=== PATIENT | male | born 1960 | race African-American/Black ===

== ENCOUNTER 2020-02-13 17:11 | Inpatient (IN) | payer BC, OTHER ==
[2020-02-13 19:03] LABS: BASO % 0.6 % (0-2.0); EOS % 1.1 % (0-4.5); HEMATOCRIT 28.3 % (35.4-49); HEMOGLOBIN 8.9 GM/dL (11.7-16.9); MCHC 31.5 g/dl (32.0-35.9); MEAN CELL VOLUME 82.7 fl (80-96); MEAN PLT VOLUME 7.8 fl (7.5-11.1); MONO % 9.3 % (3.8-10.2); PLATELET COUNT 262 K/MM3 (134-434); RBC 3.42 M/mm3 (4.00-5.60); RDW 17.6 % (11.9-15.9); WHITE BLOOD COUNT 15.8 K/mm3 (4.0-10.0)
[2020-02-13] MEDS ORDERED: SODIUM CHLORIDE 1,000 ML IV STA (19:17)
[2020-02-13] MEDS ORDERED: SODIUM CHLORIDE 500 ML IV STA ×4 (19:19→23:50)
[2020-02-13 19:22] LABS: CHLORIDE 98 mmol/L (98-107); POTASSIUM 4.6 mmol/L (3.5-5.1); SODIUM 132 mmol/L (136-145)
[2020-02-13 19:24] LABS: ALBUMIN 2.6 g/dl (3.4-5.0); ANION GAP 13 MMOL/L (8-16); CALCIUM 9.2 mg/dL (8.5-10.1); CO2 22 mmol/L (21-32); GLUCOSE,RANDOM 109 mg/dL (74-106)
[2020-02-13 19:27] LABS: SGOT/AST 22 U/L (15-37); SGPT/ALT 65 U/L (13-61)
[2020-02-13 19:29] LABS: BILIRUBIN,TOTAL 1.4 mg/dL (0.2-1); TOT PROT 7.7 g/dl (6.4-8.2)
[2020-02-13 19:30] LABS: ALK PHOS 171 U/L (45-117)
[2020-02-13 19:32] LABS: N-TERMINAL BNP 1753.4 pg/ml (5-125)
[2020-02-13 19:58] LABS: CREATININE 12.5 mg/dL (0.55-1.3)
[2020-02-13] MEDS ORDERED: PIPERACILLIN/TAZOB 3.375 GM 2.25 GM in DEXTROSE 5%-WATER - 50 ML IVPB ONE (21:58)
[2020-02-13] MEDS ORDERED: PIPERACILLIN/TAZOB 2.25 GM 2.25 GM/50 ML BAG IVPB ONE (22:04)
[2020-02-13 22:19] LABS: INR 1.37 (0.83-1.09); PROTHROMBIN TIME (PATIENT) 16.4 SEC (9.7-13.0)
[2020-02-13 22:21] LABS: ACTIVATED PTT 32.1 SECONDS (25.2-36.5)
[2020-02-13] MEDS ORDERED: NOREPINEPHRINE BITARTRATE 4,000 MCG in SODIUM CHLORIDE 0.45% 496 ML IV SCH (23:45)
[2020-02-14] MEDS ORDERED: SODIUM CHLORIDE 1,000 ML IV STA (00:14)
[2020-02-14] MEDS ORDERED: VANCOMYCIN 1 GM in D5W (PRE-DOCKED) 1,000 MG/250 ML IVPB ONE (00:16)
[2020-02-14] MEDS ORDERED: VANCOMYCIN 1 GRAM (PRE-DOCKED) 1,000 MG/250 ML BAG IVPB ONE (01:23)
[2020-02-14] MEDS ORDERED: SODIUM CHLORIDE 0.9% 500 ML INFUS.BAG IV ONE (02:10)
[2020-02-14 02:58] VITALS: BMI 18.7
[2020-02-14] MEDS ORDERED: SODIUM CHLORIDE 1,000 ML IV SCH (06:30)
[2020-02-14 06:47] LABS: BASO % 0.9 % (0-2.0); EOS % 7.4 % (0-4.5); HEMATOCRIT 25.7 % (35.4-49); MCH 25.6 pg (25.7-33.7); MCHC 31.3 g/dl (32.0-35.9); MEAN CELL VOLUME 81.9 fl (80-96); MEAN PLT VOLUME 7.6 fl (7.5-11.1); MONO % 8.4 % (3.8-10.2); NEUT % 59.3 % (42.8-82.8); PLATELET COUNT 203 K/MM3 (134-434); RBC 3.13 M/mm3 (4.00-5.60); RDW 17.7 % (11.9-15.9); WHITE BLOOD COUNT 8.6 K/mm3 (4.0-10.0)
[2020-02-14 06:55] LABS: INR 1.4 (0.83-1.09); PROTHROMBIN TIME (PATIENT) 16.8 SEC (9.7-13.0)
[2020-02-14 07:41] LABS: POTASSIUM 4.1 mmol/L (3.5-5.1)
[2020-02-14 07:56] LABS: ALBUMIN 2.2 g/dl (3.4-5.0)
[2020-02-14 07:57] LABS: BLOOD UREA NITROGEN 93.8 mg/dL (7-18); MAGNESIUM 1.9 mg/dL (1.8-2.4)
[2020-02-14 07:58] LABS: CALCIUM 8.6 mg/dL (8.5-10.1)
[2020-02-14 07:59] LABS: PHOSPHOROUS 5.8 mg/dL (2.5-4.9)
[2020-02-14 08:00] LABS: BILIRUBIN,TOTAL 0.7 mg/dL (0.2-1); TOT PROT 6.4 g/dl (6.4-8.2)
[2020-02-14 08:02] LABS: N-TERMINAL BNP 2246.5 pg/ml (5-125)
[2020-02-14 08:16] LABS: CREATININE 11.8 mg/dL (0.55-1.3)
[2020-02-14 09:33] LABS: HIV INTERPRETATION NEGATIVE (NEGATIVE)
[2020-02-14] MEDS ORDERED: PIPERACILLIN/TAZOB 2.25 GM 2.25 GM in DEXTROSE 5%-WATER - 50 ML IVPB SCH (10:00)
[2020-02-14] MEDS ORDERED: ALBUTEROL SO4 HFA INHALER IH SCH (10:00)
[2020-02-14] MEDS ORDERED: APIXABAN 5 MG TABLET PEG SCH ×2 (10:00→11:45)
[2020-02-14] MEDS ORDERED: PIPERACILLIN/TAZOBACTAM 2.25 GM VIAL IVPB ONE ×3 (10:29→21:06)
[2020-02-14] MEDS ORDERED: DEXTROSE 5%-WATER - 50 ML IVPB ONE ×3 (10:29→21:06)
[2020-02-14] MEDS: MUPIROCIN 2% TOPICAL OINTMENT FOR DECOLONIZATION NS SCH ×2 (10:55→21:09)
[2020-02-14] MEDS: ASPIRIN 81 MG CHEWABLE TABLETS PO SCH (10:55)
[2020-02-14] MEDS: PANTOPRAZOLE SODIUM 40 MG VIAL IVPUSH SCH (10:56)
[2020-02-14] MEDS: PIPERACILLIN/TAZOB 2.25 GM 2.25 GM in DEXTROSE 5%-WATER - 50 ML IVPB SCH ×4 (10:56→17:47)
[2020-02-14] MEDS: NOREPINEPHRINE BITARTRATE 8,000 MCG/500 ML BAG IVPB SCH (12:09)
[2020-02-14] MEDS ORDERED: SODIUM CHLORIDE 250 ML IV PRN (13:29)
[2020-02-14] MEDS ORDERED: EPOETIN ALFA-EPBX 10,000 UNIT/ML VIAL SQ ONE (14:30)
[2020-02-14] MEDS: AMINO ACIDS/PROTEIN HYDROLYS 30 ML LIQUID.PKT GT SCH (17:47)
[2020-02-14] MEDS ORDERED: PNEUMOC 13-VAL CONJ-DIP CRM/PF 0.5 ML DISP.SYRIN IM ONE (20:00)
[2020-02-14] MEDS ORDERED: ACETAMINOPHEN 1000 MG/100 ML VIAL (NON FORMULARY) IVPB ONE (21:03)
[2020-02-14] MEDS ORDERED: PT OWN MED DRAWER 7, Y5N ONE (21:06)
[2020-02-14] MEDS: APIXABAN 2.5 MG TABLET PEG SCH (21:09)
[2020-02-14] MEDS: CHLORHEXIDINE GLUCONATE 4% CLEANSER FOR DECOLONIZATION TP SCH (21:10)
[2020-02-14] MEDS: ALBUTEROL SO4 0.083% IH SOL 2.5 MG/3 ML VIAL.NEB. NEB SCH (21:15)
[2020-02-15] MEDS: PIPERACILLIN/TAZOB 2.25 GM 2.25 GM in DEXTROSE 5%-WATER - 50 ML IVPB SCH ×3 (02:00→17:23)
[2020-02-15 07:42] LABS: HEMATOCRIT 25.8 % (35.4-49); MCH 25.5 pg (25.7-33.7); MCHC 31.1 g/dl (32.0-35.9); MEAN CELL VOLUME 81.9 fl (80-96); MEAN PLT VOLUME 7.7 fl (7.5-11.1); PLATELET COUNT 248 K/MM3 (134-434); RBC 3.15 M/mm3 (4.00-5.60); WHITE BLOOD COUNT 7.2 K/mm3 (4.0-10.0)
[2020-02-15 07:47] LABS: POTASSIUM 3.5 mmol/L (3.5-5.1)
[2020-02-15 07:52] LABS: ALBUMIN 1.9 g/dl (3.4-5.0); CALCIUM 7.9 mg/dL (8.5-10.1); MAGNESIUM 1.6 mg/dL (1.8-2.4)
[2020-02-15] MEDS ORDERED: DEXTROSE 5%-WATER - 50 ML IVPB ONE ×3 (07:52→21:11)
[2020-02-15] MEDS ORDERED: PIPERACILLIN/TAZOBACTAM 2.25 GM VIAL IVPB ONE ×3 (07:52→21:11)
[2020-02-15] MEDS ORDERED: MAGNESIUM SULF 50% (8.12 MEQ/2 ML-1 GM VIAL) IVPB ONE (07:54)
[2020-02-15] MEDS ORDERED: ACETAMINOPHEN 650 MG/20.3 ML ORAL SOLUTION (CUPS) PEG ONE (07:54)
[2020-02-15 07:55] LABS: CREATININE 5.9 mg/dL (0.55-1.3)
[2020-02-15 07:56] LABS: BILIRUBIN,TOTAL 0.8 mg/dL (0.2-1); TOT PROT 6.2 g/dl (6.4-8.2)
[2020-02-15 07:57] LABS: BLOOD UREA NITROGEN 37.8 mg/dL (7-18)
[2020-02-15] MEDS: ALBUTEROL SO4 0.083% IH SOL 2.5 MG/3 ML VIAL.NEB. NEB SCH ×2 (08:05→21:25)
[2020-02-15] MEDS: AMINO ACIDS/PROTEIN HYDROLYS 30 ML LIQUID.PKT GT SCH ×2 (08:49→17:22)
[2020-02-15] MEDS ORDERED: MAGNESIUM SULF 50% (8.12 MEQ/2 ML-1 GM VIAL) ONE (09:34)
[2020-02-15] MEDS ORDERED: morphine SULFATE 4 MG/ML VIAL IVPUSH PRN (10:24)
[2020-02-15] MEDS: APIXABAN 2.5 MG TABLET PEG SCH ×2 (10:47→21:15)
[2020-02-15] MEDS: ASPIRIN 81 MG CHEWABLE TABLETS PO SCH (10:47)
[2020-02-15] MEDS: PANTOPRAZOLE SODIUM 40 MG VIAL IVPUSH SCH (10:48)
[2020-02-15] MEDS: MUPIROCIN 2% TOPICAL OINTMENT FOR DECOLONIZATION NS SCH ×2 (10:48→21:15)
[2020-02-15] MEDS: NOREPINEPHRINE BITARTRATE 8,000 MCG/500 ML BAG IVPB SCH (11:00)
[2020-02-15] MEDS ORDERED: ACETAMINOPHEN 650 MG/20.3 ML ORAL SOLUTION (CUPS) PEG PRN (12:00)
[2020-02-15] MEDS ORDERED: ONDANSETRON 4 MG/2 ML VIAL IVPUSH PRN (15:23)
[2020-02-15] MEDS ORDERED: VANCOMYCIN 1 GRAM (PRE-DOCKED) 1,000 MG/250 ML BAG IVPB ONE (16:00)
[2020-02-15] MEDS ORDERED: PT OWN MED DRAWER 7, Y5N ONE (21:11)
[2020-02-15] MEDS: CHLORHEXIDINE GLUCONATE 4% CLEANSER FOR DECOLONIZATION TP SCH (21:15)
[2020-02-16] MEDS: PIPERACILLIN/TAZOB 2.25 GM 2.25 GM in DEXTROSE 5%-WATER - 50 ML IVPB SCH ×3 (02:28→17:45)
[2020-02-16 07:07] LABS: HEMATOCRIT 27.3 % (35.4-49); HEMOGLOBIN 8.3 GM/dL (11.7-16.9); MCH 25.1 pg (25.7-33.7); MCHC 30.5 g/dl (32.0-35.9); MEAN CELL VOLUME 82.3 fl (80-96); MEAN PLT VOLUME 7.3 fl (7.5-11.1); PLATELET COUNT 223 K/MM3 (134-434); RBC 3.31 M/mm3 (4.00-5.60); RDW 18.1 % (11.9-15.9); WHITE BLOOD COUNT 6.4 K/mm3 (4.0-10.0)
[2020-02-16 07:20] LABS: POTASSIUM 3.6 mmol/L (3.5-5.1)
[2020-02-16 07:26] LABS: ALBUMIN 1.9 g/dl (3.4-5.0); BLOOD UREA NITROGEN 44.4 mg/dL (7-18); CALCIUM 8.3 mg/dL (8.5-10.1); MAGNESIUM 1.8 mg/dL (1.8-2.4)
[2020-02-16 07:29] LABS: PHOSPHOROUS 3.1 mg/dL (2.5-4.9)
[2020-02-16 07:30] LABS: BILIRUBIN,TOTAL 0.8 mg/dL (0.2-1); TOT PROT 6.2 g/dl (6.4-8.2)
[2020-02-16 07:37] LABS: CREATININE 7.6 mg/dL (0.55-1.3)
[2020-02-16] MEDS ORDERED: morphine SULFATE 4 MG/ML VIAL IVPUSH PRN ×2 (07:45→11:38)
[2020-02-16] MEDS: ALBUTEROL SO4 0.083% IH SOL 2.5 MG/3 ML VIAL.NEB. NEB SCH ×2 (08:48→20:39)
[2020-02-16] MEDS ORDERED: SODIUM CHLORIDE 250 ML IV PRN (09:47)
[2020-02-16] MEDS: AMINO ACIDS/PROTEIN HYDROLYS 30 ML LIQUID.PKT GT SCH ×2 (10:10→16:40)
[2020-02-16] MEDS: LACTATED RINGERS SOLUTION 1,000 ML/1,000 ML INFUS.BAG IV SCH ×2 (10:10→22:31)
[2020-02-16] MEDS: ASPIRIN 81 MG CHEWABLE TABLETS PO SCH (10:10)
[2020-02-16] MEDS: PANTOPRAZOLE SODIUM 40 MG VIAL IVPUSH SCH (10:11)
[2020-02-16] MEDS: APIXABAN 2.5 MG TABLET PEG SCH ×2 (10:11→22:43)
[2020-02-16] MEDS: MUPIROCIN 2% TOPICAL OINTMENT FOR DECOLONIZATION NS SCH ×2 (10:48→22:42)
[2020-02-16] MEDS: NOREPINEPHRINE BITARTRATE 8,000 MCG/500 ML BAG IVPB SCH (12:00)
[2020-02-16] MEDS ORDERED: EPOETIN ALFA-EPBX 10,000 UNIT/ML VIAL IVPUSH ONE (13:45)
[2020-02-16] MEDS: MIDODRINE HCL 5 MG TABLET PO SCH ×3 (14:00→18:32)
[2020-02-16] MEDS ORDERED: PIPERACILLIN/TAZOBACTAM 2.25 GM VIAL IVPB ONE (16:37)
[2020-02-16] MEDS ORDERED: DEXTROSE 5%-WATER - 50 ML IVPB ONE (16:37)
[2020-02-16] MEDS: oxyCODONE HCL 5 MG TABLET PO PRN ×2 (16:40→22:42)
[2020-02-16] MEDS: CHLORHEXIDINE GLUCONATE 4% CLEANSER FOR DECOLONIZATION TP SCH (22:43)
[2020-02-16] MEDS ORDERED: PT OWN MED DRAWER 7, Y5N ONE (22:44)
[2020-02-17] MEDS ORDERED: DEXTROSE 5%-WATER - 50 ML IVPB ONE ×3 (01:30→16:40)
[2020-02-17] MEDS ORDERED: PIPERACILLIN/TAZOBACTAM 2.25 GM VIAL IVPB ONE ×3 (01:30→16:40)
[2020-02-17] MEDS: PIPERACILLIN/TAZOB 2.25 GM 2.25 GM in DEXTROSE 5%-WATER - 50 ML IVPB SCH ×3 (01:31→17:06)
[2020-02-17] MEDS: morphine SULFATE 4 MG/ML VIAL IVPUSH PRN ×3 (01:40→17:09)
[2020-02-17 07:32] LABS: POTASSIUM 3.6 mmol/L (3.5-5.1)
[2020-02-17 07:34] LABS: CALCIUM 8.4 mg/dL (8.5-10.1)
[2020-02-17 07:35] LABS: ALBUMIN 1.8 g/dl (3.4-5.0); BLOOD UREA NITROGEN 21.2 mg/dL (7-18); MAGNESIUM 1.5 mg/dL (1.8-2.4)
[2020-02-17 07:36] LABS: HEMATOCRIT 28.7 % (35.4-49); MCH 25.9 pg (25.7-33.7); MCHC 31.4 g/dl (32.0-35.9); MEAN CELL VOLUME 82.6 fl (80-96); MEAN PLT VOLUME 7.5 fl (7.5-11.1); PLATELET COUNT 219 K/MM3 (134-434); RBC 3.48 M/mm3 (4.00-5.60); RDW 17.5 % (11.9-15.9); WHITE BLOOD COUNT 7.1 K/mm3 (4.0-10.0)
[2020-02-17 07:38] LABS: CREATININE 4.5 mg/dL (0.55-1.3); PHOSPHOROUS 2.2 mg/dL (2.5-4.9)
[2020-02-17 07:40] LABS: BILIRUBIN,TOTAL 0.6 mg/dL (0.2-1); TOT PROT 5.8 g/dl (6.4-8.2)
[2020-02-17] MEDS: ALBUTEROL SO4 0.083% IH SOL 2.5 MG/3 ML VIAL.NEB. NEB SCH ×2 (08:37→20:30)
[2020-02-17] MEDS ORDERED: MAGNESIUM SULF 50% (8.12 MEQ/2 ML-1 GM VIAL) IVPB ONE (08:37)
[2020-02-17] MEDS ORDERED: MAGNESIUM 1GM/D5W - 1 GM/100 ML IVPB IVPB ONE (08:45)
[2020-02-17] MEDS: AMINO ACIDS/PROTEIN HYDROLYS 30 ML LIQUID.PKT GT SCH ×2 (08:50→17:06)
[2020-02-17] MEDS ORDERED: POTASSIUM PHOSPHATE IVPB ONE (09:00)
[2020-02-17] MEDS ORDERED: SODIUM CHLORIDE IVPB ONE (09:00)
[2020-02-17] MEDS: ASPIRIN 81 MG CHEWABLE TABLETS PO SCH (09:06)
[2020-02-17] MEDS: PANTOPRAZOLE SODIUM 40 MG VIAL IVPUSH SCH (09:06)
[2020-02-17] MEDS: APIXABAN 2.5 MG TABLET PEG SCH (09:06)
[2020-02-17] MEDS: LACTATED RINGERS SOLUTION 1,000 ML/1,000 ML INFUS.BAG IV SCH (09:07)
[2020-02-17] MEDS: MUPIROCIN 2% TOPICAL OINTMENT FOR DECOLONIZATION NS SCH ×2 (09:08→22:50)
[2020-02-17] MEDS: MIDODRINE HCL 5 MG TABLET PO SCH ×3 (09:08→17:06)
[2020-02-17 12:01] LABS: INR 1.55 (0.83-1.09); PROTHROMBIN TIME (PATIENT) 18.8 SEC (9.7-13.0)
[2020-02-17 12:04] LABS: ACTIVATED PTT 33.2 SECONDS (25.2-36.5)
[2020-02-17] MEDS: NOREPINEPHRINE BITARTRATE 8,000 MCG/500 ML BAG IVPB SCH (13:14)
[2020-02-17] MEDS: oxyCODONE HCL 5 MG TABLET PO PRN (13:29)
[2020-02-17] MEDS: CHLORHEXIDINE GLUCONATE 4% CLEANSER FOR DECOLONIZATION TP SCH (22:50)
[2020-02-17] MEDS: HEPARIN NA (PORCINE) 5,000 UNITS/ML 1ML VIAL SQ SCH (22:50)
[2020-02-17] MEDS ORDERED: PT OWN MED DRAWER 7, Y5N ONE (23:35)
[2020-02-18] MEDS: PIPERACILLIN/TAZOB 2.25 GM 2.25 GM in DEXTROSE 5%-WATER - 50 ML IVPB SCH ×3 (02:50→17:21)
[2020-02-18] MEDS ORDERED: PIPERACILLIN/TAZOBACTAM 2.25 GM VIAL IVPB ONE ×3 (03:15→17:19)
[2020-02-18] MEDS ORDERED: DEXTROSE 5%-WATER - 50 ML IVPB ONE ×3 (03:15→17:19)
[2020-02-18 07:07] LABS: HEMATOCRIT 28.3 % (35.4-49); HEMOGLOBIN 8.8 GM/dL (11.7-16.9); MCH 25.4 pg (25.7-33.7); MEAN PLT VOLUME 7.3 fl (7.5-11.1); PLATELET COUNT 200 K/MM3 (134-434); RBC 3.45 M/mm3 (4.00-5.60); RDW 17.9 % (11.9-15.9); WHITE BLOOD COUNT 5.5 K/mm3 (4.0-10.0)
[2020-02-18 07:33] LABS: POTASSIUM 3.7 mmol/L (3.5-5.1)
[2020-02-18 07:35] LABS: CALCIUM 8.3 mg/dL (8.5-10.1)
[2020-02-18 07:36] LABS: ALBUMIN 1.6 g/dl (3.4-5.0); MAGNESIUM 1.7 mg/dL (1.8-2.4)
[2020-02-18 07:39] LABS: CREATININE 5.8 mg/dL (0.55-1.3); PHOSPHOROUS 3.6 mg/dL (2.5-4.9)
[2020-02-18 07:41] LABS: BILIRUBIN,TOTAL 0.5 mg/dL (0.2-1); TOT PROT 5.2 g/dl (6.4-8.2)
[2020-02-18] MEDS: AMINO ACIDS/PROTEIN HYDROLYS 30 ML LIQUID.PKT GT SCH (09:19)
[2020-02-18] MEDS ORDERED: NAPH,MB-DB/K PH,MBDB POWDER PACKET PO ONE (09:24)
[2020-02-18] MEDS: POTASSIUM CHLORIDE TABS 20 MEQ TABLET.ER (FP) PO ONE ×2 (09:41→09:46)
[2020-02-18] MEDS: PANTOPRAZOLE SODIUM 40 MG VIAL IVPUSH SCH (09:41)
[2020-02-18] MEDS: LACTATED RINGERS SOLUTION 1,000 ML/1,000 ML INFUS.BAG IV SCH ×2 (09:42→17:20)
[2020-02-18] MEDS: MIDODRINE HCL 5 MG TABLET PO SCH ×2 (09:42→14:00)
[2020-02-18] MEDS: HEPARIN NA (PORCINE) 5,000 UNITS/ML 1ML VIAL SQ SCH (09:42)
[2020-02-18] MEDS: ASPIRIN 81 MG CHEWABLE TABLETS PO SCH (09:42)
[2020-02-18] MEDS: MUPIROCIN 2% TOPICAL OINTMENT FOR DECOLONIZATION NS SCH (09:43)
[2020-02-18] MEDS ORDERED: POTASSIUM CHLORIDE ORAL LIQUID 20 MEQ/15 ML PO ONE (10:02)
[2020-02-18] MEDS: oxyCODONE HCL 5 MG TABLET PO PRN (10:09)
[2020-02-18] MEDS: morphine SULFATE 4 MG/ML VIAL IVPUSH PRN (14:00)
[2020-02-18] MEDS: NOREPINEPHRINE BITARTRATE 8,000 MCG/500 ML BAG IVPB SCH (14:00)
[2020-02-18] MEDS ORDERED: morphine SULFATE 4 MG/ML VIAL IVPUSH PRN (15:24)
[2020-02-18] MEDS ORDERED: ACETAMINOPHEN 650 MG/20.3 ML ORAL SOLUTION (CUPS) PEG PRN (15:24)
[2020-02-18] MEDS ORDERED: oxyCODONE HCL 5 MG TABLET PEG PRN (15:24)
[2020-02-18] MEDS: MIDODRINE HCL 5 MG TABLET PEG SCH (17:21)
[2020-02-18] MEDS: ONDANSETRON 4 MG/2 ML VIAL IVPUSH PRN ×2 (17:24→22:27)
[2020-02-18] MEDS: AMINO ACIDS/PROTEIN HYDROLYS 30 ML LIQUID.PKT PEG SCH (19:01)
[2020-02-18] MEDS: ALBUTEROL SO4 0.083% IH SOL 2.5 MG/3 ML VIAL.NEB. NEB SCH (20:59)
[2020-02-18] MEDS ORDERED: HEPARIN NA (PORCINE) 5,000 UNITS/ML 1ML VIAL SQ SCH (22:00)
[2020-02-18] MEDS ORDERED: MUPIROCIN 2% TOPICAL OINTMENT FOR DECOLONIZATION NS SCH (22:00)
[2020-02-19] MEDS ORDERED: PIPERACILLIN/TAZOBACTAM 2.25 GM VIAL IVPB ONE ×2 (01:31→09:36)
[2020-02-19] MEDS ORDERED: DEXTROSE 5%-WATER - 50 ML IVPB ONE ×2 (01:32→09:36)
[2020-02-19] MEDS: PIPERACILLIN/TAZOB 2.25 GM 2.25 GM in DEXTROSE 5%-WATER - 50 ML IVPB SCH ×2 (01:33→09:48)
[2020-02-19 06:25] LABS: HEMATOCRIT 29.3 % (35.4-49); MCH 25.1 pg (25.7-33.7); MCHC 30.8 g/dl (32.0-35.9); MEAN CELL VOLUME 81.5 fl (80-96); MEAN PLT VOLUME 7.2 fl (7.5-11.1); PLATELET COUNT 243 K/MM3 (134-434); RBC 3.59 M/mm3 (4.00-5.60); RDW 17.7 % (11.9-15.9); WHITE BLOOD COUNT 7.4 K/mm3 (4.0-10.0)
[2020-02-19] MEDS: LACTATED RINGERS SOLUTION 1,000 ML/1,000 ML INFUS.BAG IV SCH ×2 (06:35→18:49)
[2020-02-19 06:38] LABS: INR 1.3 (0.83-1.09); PROTHROMBIN TIME (PATIENT) 15.6 SEC (9.7-13.0)
[2020-02-19 06:41] LABS: POTASSIUM 4.1 mmol/L (3.5-5.1)
[2020-02-19 06:46] LABS: ALBUMIN 1.7 g/dl (3.4-5.0); CALCIUM 8.5 mg/dL (8.5-10.1)
[2020-02-19 06:47] LABS: MAGNESIUM 1.5 mg/dL (1.8-2.4)
[2020-02-19 06:50] LABS: CREATININE 6.9 mg/dL (0.55-1.3); PHOSPHOROUS 3.8 mg/dL (2.5-4.9)
[2020-02-19 06:51] LABS: BILIRUBIN,TOTAL 0.6 mg/dL (0.2-1); TOT PROT 5.5 g/dl (6.4-8.2)
[2020-02-19] MEDS: AMINO ACIDS/PROTEIN HYDROLYS 30 ML LIQUID.PKT PEG SCH ×2 (08:07→18:50)
[2020-02-19] MEDS: ALBUTEROL SO4 0.083% IH SOL 2.5 MG/3 ML VIAL.NEB. NEB SCH ×2 (08:20→20:20)
[2020-02-19] MEDS: MIDODRINE HCL 5 MG TABLET PEG SCH ×2 (09:50→18:49)
[2020-02-19] MEDS ORDERED: PANTOPRAZOLE SODIUM 40 MG VIAL IVPUSH SCH (10:00)
[2020-02-19] MEDS ORDERED: ASPIRIN 81 MG CHEWABLE TABLETS PEG SCH (10:00)
[2020-02-19] MEDS ORDERED: MAGNESIUM 1GM/D5W 100ML - 100 ML IVPB IVPB ONE (10:15)
[2020-02-19] MEDS ORDERED: CEFAZOLIN 1 GM in DEXTROSE 5%-WATER - 50 ML IVPB SCH (13:00)
[2020-02-19] MEDS ORDERED: MIDAZOLAM HCL 2 MG/2 ML SINGLE DOSE VIAL ONE (14:52)
[2020-02-19] MEDS ORDERED: SODIUM CHLORIDE 0.9% P/F 10 ML VIAL IJ ONE (15:12)
[2020-02-19] MEDS ORDERED: ceFAZolin SODIUM 1 GM VIAL ONE (15:12)
[2020-02-19] MEDS ORDERED: ceFAZolin SODIUM 1 GM VIAL IVPB ONE (15:13)
[2020-02-19] MEDS ORDERED: ONDANSETRON 4 MG TABLET PO PRN (16:33)
[2020-02-19] MEDS ORDERED: CODEINE SO4 30 MG TABLET PO PRN (16:33)
[2020-02-19] MEDS ORDERED: ACETAMINOPHEN 325 MG TABLET (FP) PO PRN (16:33)
[2020-02-19] MEDS ORDERED: PROMETHAZINE HCL 25 MG/1 ML VIAL IVPUSH PRN ×2 (16:46→18:24)
[2020-02-19] MEDS ORDERED: ONDANSETRON 4 MG/2 ML VIAL IVPUSH PRN ×3 (16:46→18:24)
[2020-02-19] MEDS ORDERED: SODIUM CHLORIDE 1,000 ML IV SCH (17:00)
[2020-02-19] MEDS ORDERED: CHOLESTYRAMINE/ASPARTAME 4 GM PACKET PEG SCH (18:00)
[2020-02-19] MEDS ORDERED: LACTATED RINGERS SOLUTION 1,000 ML/1,000 ML INFUS.BAG IV SCH (18:24)
[2020-02-19] MEDS ORDERED: ACETAMINOPHEN 650 MG/20.3 ML ORAL SOLUTION (CUPS) PEG PRN (18:24)
[2020-02-19] MEDS: SODIUM CHLORIDE 1,000 ML IV SCH ×2 (18:30→22:33)
[2020-02-19] MEDS: morphine SULFATE 4 MG/ML VIAL IVPUSH PRN (21:11)
[2020-02-19] MEDS: oxyCODONE HCL 5 MG TABLET PEG PRN (21:49)
[2020-02-19] MEDS ORDERED: CHLORHEXIDINE GLUCONATE 0.12% 15ML CUP MM SCH (22:00)
[2020-02-19] MEDS ORDERED: HEPARIN NA (PORCINE) 5,000 UNITS/ML 1ML VIAL SQ SCH (22:00)
[2020-02-19] MEDS ORDERED: GABAPENTIN 250 MG/5 ML ORAL SOLUTION, 470 ML BOTTLE PEG SCH (22:00)
[2020-02-19] MEDS ORDERED: LOPERAMIDE HCL 2 MG CAPSULE PEG SCH (22:00)
[2020-02-19] MEDS ORDERED: OCTREOTIDE ACETATE 100 MCG/1 ML SQ SCH (22:00)
[2020-02-19] MEDS: GABAPENTIN 250 MG/5 ML ORAL SOLUTION, 470 ML BOTTLE PEG SCH (22:33)
[2020-02-19] MEDS: OCTREOTIDE ACETATE 100 MCG/1 ML SQ SCH (22:34)
[2020-02-19] MEDS: LOPERAMIDE HCL 2 MG CAPSULE PEG SCH (22:35)
[2020-02-19] MEDS: CHLORHEXIDINE GLUCONATE 0.12% 15ML CUP MM SCH (22:35)
[2020-02-19] MEDS: CHOLESTYRAMINE/ASPARTAME 4 GM PACKET PEG SCH (22:35)
[2020-02-19] MEDS ORDERED: ACETAMINOPHEN 1000 MG/100 ML VIAL (NON FORMULARY) IVPB ONE (23:00)
[2020-02-19] MEDS: QUEtiapine FUMARATE 50 MG TABLET PEG SCH (23:16)
[2020-02-20] MEDS: morphine SULFATE 4 MG/ML VIAL IVPUSH PRN ×2 (01:35→06:26)
[2020-02-20] MEDS: oxyCODONE HCL 5 MG TABLET PEG PRN ×2 (04:30→19:15)
[2020-02-20] MEDS: OCTREOTIDE ACETATE 100 MCG/1 ML SQ SCH ×3 (05:23→21:25)
[2020-02-20] MEDS: LOPERAMIDE HCL 2 MG CAPSULE PEG SCH ×3 (05:23→21:25)
[2020-02-20] MEDS: GABAPENTIN 250 MG/5 ML ORAL SOLUTION, 470 ML BOTTLE PEG SCH ×3 (05:24→21:26)
[2020-02-20 07:37] LABS: POTASSIUM 4.8 mmol/L (3.5-5.1)
[2020-02-20 07:41] LABS: HEMATOCRIT 27.7 % (35.4-49); HEMOGLOBIN 8.5 GM/dL (11.7-16.9); MCH 25.7 pg (25.7-33.7); MCHC 30.8 g/dl (32.0-35.9); MEAN CELL VOLUME 83.4 fl (80-96); MEAN PLT VOLUME 7.4 fl (7.5-11.1); PLATELET COUNT 295 K/MM3 (134-434); RBC 3.32 M/mm3 (4.00-5.60); RDW 18.8 % (11.9-15.9); WHITE BLOOD COUNT 12.5 K/mm3 (4.0-10.0)
[2020-02-20 07:49] LABS: CALCIUM 8.8 mg/dL (8.5-10.1)
[2020-02-20] MEDS: ALBUTEROL SO4 0.083% IH SOL 2.5 MG/3 ML VIAL.NEB. NEB SCH ×2 (07:49→20:45)
[2020-02-20 07:50] LABS: ALBUMIN 2.1 g/dl (3.4-5.0); BLOOD UREA NITROGEN 37.5 mg/dL (7-18); MAGNESIUM 1.7 mg/dL (1.8-2.4)
[2020-02-20 07:54] LABS: PHOSPHOROUS 4.9 mg/dL (2.5-4.9); TOT PROT 6.4 g/dl (6.4-8.2)
[2020-02-20 07:56] LABS: BILIRUBIN,TOTAL 0.9 mg/dL (0.2-1)
[2020-02-20] MEDS ORDERED: HYDROmorphone HCL CARPU-JECT 2 MG/1 ML DISP.SYRIN IVPUSH PRN (08:16)
[2020-02-20] MEDS ORDERED: oxyCODONE HCL 5 MG TABLET PEG PRN (08:16)
[2020-02-20] MEDS: AMINO ACIDS/PROTEIN HYDROLYS 30 ML LIQUID.PKT PEG SCH ×2 (08:30→18:13)
[2020-02-20] MEDS: HYDROmorphone HCl 2 MG/ML VIAL IVPB PRN ×2 (09:13→21:26)
[2020-02-20] MEDS ORDERED: PT OWN MED DRAWER 7, Y5N ONE ×2 (09:13→11:30)
[2020-02-20] MEDS ORDERED: TOLNAFTATE 1% POWDER 45 GM POW TP SCH (10:00)
[2020-02-20] MEDS ORDERED: FAMOTIDINE 40 MG/5 ML ORAL SUSPENSION PEG SCH (10:00)
[2020-02-20] MEDS ORDERED: MIDODRINE HCL 5 MG TABLET PEG SCH (10:00)
[2020-02-20] MEDS ORDERED: VITAMIN B COMP W-C 1 EA TABLET (NEPHRO-VITE) PO SCH (10:00)
[2020-02-20] MEDS ORDERED: AMIODARONE HCL 200 MG TABLET PEG SCH (10:00)
[2020-02-20] MEDS ORDERED: amLODIPine BESYLATE 10 MG TABLET (FP) PEG SCH (10:00)
[2020-02-20] MEDS ORDERED: PNEUMOC 13-VAL CONJ-DIP CRM/PF 0.5 ML DISP.SYRIN IM ONE (10:00)
[2020-02-20] MEDS: ASPIRIN 81 MG CHEWABLE TABLETS PEG SCH (10:36)
[2020-02-20] MEDS: VITAMIN B COMP W-C 1 EA TABLET (NEPHRO-VITE) PO SCH (10:37)
[2020-02-20] MEDS: FAMOTIDINE 40 MG/5 ML ORAL SUSPENSION PEG SCH ×2 (10:39→21:25)
[2020-02-20] MEDS: CHLORHEXIDINE GLUCONATE 0.12% 15ML CUP MM SCH ×2 (10:39→21:25)
[2020-02-20] MEDS: PANTOPRAZOLE SODIUM 40 MG VIAL IVPUSH SCH (10:40)
[2020-02-20] MEDS: CHOLESTYRAMINE/ASPARTAME 4 GM PACKET PEG SCH ×4 (10:40→21:25)
[2020-02-20] MEDS ORDERED: SODIUM CHLORIDE 250 ML IV PRN (10:47)
[2020-02-20] MEDS: TOLNAFTATE 1% POWDER 45 GM POW TP SCH (11:07)
[2020-02-20] MEDS ORDERED: ACETAMINOPHEN 650 MG/20.3 ML ORAL SOLUTION (CUPS) PEG PRN (11:30)
[2020-02-20] MEDS: ACETAMINOPHEN 650 MG/20.3 ML ORAL SOLUTION (CUPS) PEG SCH ×2 (11:40→17:00)
[2020-02-20] MEDS: AMIODARONE HCL 200 MG TABLET PEG SCH (11:41)
[2020-02-20] MEDS ORDERED: DEXTROSE 5%-WATER - 50 ML IVPB ONE (12:07)
[2020-02-20] MEDS ORDERED: ceFAZolin SODIUM 1 GM VIAL ONE (12:07)
[2020-02-20] MEDS: CEFAZOLIN 1 GM in DEXTROSE 5%-WATER - 50 ML IVPB SCH (12:11)
[2020-02-20] MEDS: SODIUM CHLORIDE 1,000 ML IV SCH ×2 (12:29→18:49)
[2020-02-20] MEDS ORDERED: EPOETIN ALFA 10,000 UNIT/1 ML VIAL IVPUSH ONE (15:00)
[2020-02-20] MEDS ORDERED: MAGNESIUM SULF 50% (8.12 MEQ/2 ML-1 GM VIAL) IVPB ONE (15:45)
[2020-02-20] MEDS: QUEtiapine FUMARATE 50 MG TABLET PEG SCH (21:25)
[2020-02-20] MEDS ORDERED: APIXABAN 5 MG TABLET PEG SCH (22:00)
[2020-02-21] MEDS: ACETAMINOPHEN 650 MG/20.3 ML ORAL SOLUTION (CUPS) PEG SCH ×4 (00:25→17:30)
[2020-02-21] MEDS: HYDROmorphone HCl 2 MG/ML VIAL IVPB PRN ×2 (05:44→21:43)
[2020-02-21] MEDS: OCTREOTIDE ACETATE 100 MCG/1 ML SQ SCH ×3 (06:26→22:44)
[2020-02-21] MEDS: GABAPENTIN 250 MG/5 ML ORAL SOLUTION, 470 ML BOTTLE PEG SCH ×3 (06:26→22:43)
[2020-02-21] MEDS: oxyCODONE HCL 5 MG TABLET PEG PRN (06:26)
[2020-02-21] MEDS: LOPERAMIDE HCL 2 MG CAPSULE PEG SCH ×3 (06:26→21:45)
[2020-02-21] MEDS: SODIUM CHLORIDE 1,000 ML IV SCH (06:27)
[2020-02-21 07:49] LABS: HEMATOCRIT 19.9 % (35.4-49); MCH 25.9 pg (25.7-33.7); MEAN CELL VOLUME 83.7 fl (80-96); MEAN PLT VOLUME 7.2 fl (7.5-11.1); PLATELET COUNT 236 K/MM3 (134-434); RBC 2.38 M/mm3 (4.00-5.60); RDW 18.6 % (11.9-15.9)
[2020-02-21 08:05] LABS: POTASSIUM 4.4 mmol/L (3.5-5.1)
[2020-02-21 08:06] LABS: BLOOD UREA NITROGEN 19.3 mg/dL (7-18)
[2020-02-21 08:07] LABS: CALCIUM 7.6 mg/dL (8.5-10.1)
[2020-02-21 08:08] LABS: MAGNESIUM 1.8 mg/dL (1.8-2.4)
[2020-02-21 08:10] LABS: CREATININE 4.7 mg/dL (0.55-1.3); PHOSPHOROUS 3.4 mg/dL (2.5-4.9)
[2020-02-21 08:28] LABS: HEMOGLOBIN 6.2 GM/dL (11.7-16.9)
[2020-02-21] MEDS ORDERED: LIDOCAINE HCL 2% (20ML MULTI-DOSE VIAL) ONE (09:00)
[2020-02-21] MEDS: ALBUTEROL SO4 0.083% IH SOL 2.5 MG/3 ML VIAL.NEB. NEB SCH ×2 (09:30→20:24)
[2020-02-21] MEDS ORDERED: PT OWN MED DRAWER 7, Y5N ONE ×4 (10:38→21:13)
[2020-02-21] MEDS: AMINO ACIDS/PROTEIN HYDROLYS 30 ML LIQUID.PKT PEG SCH ×2 (10:41→17:32)
[2020-02-21] MEDS: VITAMIN B COMP W-C 1 EA TABLET (NEPHRO-VITE) PO SCH (10:42)
[2020-02-21] MEDS: ASPIRIN 81 MG CHEWABLE TABLETS PEG SCH (10:42)
[2020-02-21] MEDS: PANTOPRAZOLE SODIUM 40 MG VIAL IVPUSH SCH (10:42)
[2020-02-21] MEDS: AMIODARONE HCL 200 MG TABLET PEG SCH (10:42)
[2020-02-21] MEDS: FAMOTIDINE 40 MG/5 ML ORAL SUSPENSION PEG SCH ×2 (10:43→22:46)
[2020-02-21] MEDS: CHLORHEXIDINE GLUCONATE 0.12% 15ML CUP MM SCH ×2 (10:44→22:44)
[2020-02-21] MEDS: CHOLESTYRAMINE/ASPARTAME 4 GM PACKET PEG SCH ×4 (10:44→22:45)
[2020-02-21] MEDS: TOLNAFTATE 1% POWDER 45 GM POW TP SCH (10:44)
[2020-02-21] MEDS ORDERED: ceFAZolin SODIUM 1 GM VIAL ONE (12:53)
[2020-02-21] MEDS ORDERED: DEXTROSE 5%-WATER - 50 ML IVPB ONE (12:54)
[2020-02-21] MEDS: CEFAZOLIN 1 GM in DEXTROSE 5%-WATER - 50 ML IVPB SCH ×2 (12:56→13:42)
[2020-02-21] MEDS: QUEtiapine FUMARATE 50 MG TABLET PEG SCH (21:45)
[2020-02-22] MEDS: SODIUM CHLORIDE 1,000 ML IV SCH (00:06)
[2020-02-22] MEDS: OCTREOTIDE ACETATE 100 MCG/1 ML SQ SCH ×3 (05:10→22:24)
[2020-02-22] MEDS: LOPERAMIDE HCL 2 MG CAPSULE PEG SCH ×3 (05:10→22:25)
[2020-02-22] MEDS: GABAPENTIN 250 MG/5 ML ORAL SOLUTION, 470 ML BOTTLE PEG SCH ×3 (05:11→22:24)
[2020-02-22] MEDS: ALBUTEROL SO4 0.083% IH SOL 2.5 MG/3 ML VIAL.NEB. NEB SCH ×2 (07:54→20:40)
[2020-02-22 07:57] LABS: HEMATOCRIT 29.4 % (35.4-49); HEMOGLOBIN 9.4 GM/dL (11.7-16.9); MCH 26.9 pg (25.7-33.7); MCHC 32.1 g/dl (32.0-35.9); MEAN CELL VOLUME 83.7 fl (80-96); MEAN PLT VOLUME 6.9 fl (7.5-11.1); PLATELET COUNT 220 K/MM3 (134-434); RBC 3.51 M/mm3 (4.00-5.60); RDW 16.7 % (11.9-15.9); WHITE BLOOD COUNT 8.5 K/mm3 (4.0-10.0)
[2020-02-22 08:21] LABS: POTASSIUM 3.8 mmol/L (3.5-5.1)
[2020-02-22 08:26] LABS: BLOOD UREA NITROGEN 28.9 mg/dL (7-18)
[2020-02-22 08:28] LABS: CALCIUM 8.8 mg/dL (8.5-10.1)
[2020-02-22 08:29] LABS: CREATININE 5.9 mg/dL (0.55-1.3); MAGNESIUM 2.1 mg/dL (1.8-2.4); PHOSPHOROUS 4.8 mg/dL (2.5-4.9)
[2020-02-22] MEDS: AMINO ACIDS/PROTEIN HYDROLYS 30 ML LIQUID.PKT PEG SCH ×2 (08:39→17:10)
[2020-02-22] MEDS ORDERED: SODIUM CHLORIDE 250 ML IV PRN (10:23)
[2020-02-22] MEDS ORDERED: EPOETIN ALFA 10,000 UNIT/1 ML VIAL IVPUSH ONE (10:30)
[2020-02-22] MEDS: CHOLESTYRAMINE/ASPARTAME 4 GM PACKET PEG SCH ×4 (10:46→22:26)
[2020-02-22] MEDS ORDERED: ceFAZolin SODIUM 1 GM VIAL ONE (12:39)
[2020-02-22] MEDS ORDERED: PT OWN MED DRAWER 7, Y5N ONE (12:39)
[2020-02-22] MEDS ORDERED: DEXTROSE 5%-WATER - 50 ML IVPB ONE (12:40)
[2020-02-22] MEDS: PANTOPRAZOLE SODIUM 40 MG VIAL IVPUSH SCH (12:43)
[2020-02-22] MEDS: ASPIRIN 81 MG CHEWABLE TABLETS PEG SCH (12:43)
[2020-02-22] MEDS: VITAMIN B COMP W-C 1 EA TABLET (NEPHRO-VITE) PO SCH (12:43)
[2020-02-22] MEDS: HYDROmorphone HCl 2 MG/ML VIAL IVPB PRN ×2 (12:44→22:27)
[2020-02-22] MEDS: FAMOTIDINE 40 MG/5 ML ORAL SUSPENSION PEG SCH ×2 (12:45→22:25)
[2020-02-22] MEDS: CHLORHEXIDINE GLUCONATE 0.12% 15ML CUP MM SCH ×2 (12:45→22:25)
[2020-02-22] MEDS: AMIODARONE HCL 200 MG TABLET PEG SCH (12:46)
[2020-02-22] MEDS: TOLNAFTATE 1% POWDER 45 GM POW TP SCH (12:47)
[2020-02-22] MEDS: CEFAZOLIN 1 GM in DEXTROSE 5%-WATER - 50 ML IVPB SCH (12:49)
[2020-02-22] MEDS: oxyCODONE HCL 5 MG TABLET PEG PRN ×2 (17:09→23:16)
[2020-02-22] MEDS: QUEtiapine FUMARATE 50 MG TABLET PEG SCH (22:24)
[2020-02-22] MEDS: MELATONIN 5 MG TABLETS PO PRN (22:26)
[2020-02-23 04:08] LABS: EPI CELLS 21 /uL (0-25.1); HYALINE CASTS 6 /uL (0-3.1); PH,URINE 5.5 (5.0-8.0); URINE APPEARANCE CLOUDY; URINE BACTERIA 54 /uL (0-1359); URINE BILIRUBIN NEGATIVE (NEGATIVE); URINE COLOR YELLOW; URINE GLUCOSE (UA) NEGATIVE (NEGATIVE); URINE KETONE NEGATIVE (NEGATIVE); URINE LEUK ESTERASE 1+ (NEGATIVE); URINE NITRITE NEGATIVE (NEGATIVE); URINE PROTEIN 2+ (NEGATIVE); URINE WBC 79 /uL (0-25.8)
[2020-02-23 04:17] LABS: URINE RBC 80 /uL (0-23.9)
[2020-02-23] MEDS: OCTREOTIDE ACETATE 100 MCG/1 ML SQ SCH ×3 (05:41→21:49)
[2020-02-23] MEDS: GABAPENTIN 250 MG/5 ML ORAL SOLUTION, 470 ML BOTTLE PEG SCH ×3 (05:41→21:51)
[2020-02-23] MEDS: LOPERAMIDE HCL 2 MG CAPSULE PEG SCH ×3 (05:41→21:51)
[2020-02-23] MEDS: HYDROmorphone HCl 2 MG/ML VIAL IVPB PRN ×3 (06:30→22:01)
[2020-02-23 07:02] LABS: BASO % 1.1 % (0-2.0); EOS % 7.7 % (0-4.5); HEMATOCRIT 25.5 % (35.4-49); HEMOGLOBIN 8.2 GM/dL (11.7-16.9); LYMPH % 37.9 % (8-40); MCH 26.7 pg (25.7-33.7); MCHC 32.1 g/dl (32.0-35.9); MEAN CELL VOLUME 83.4 fl (80-96); MEAN PLT VOLUME 6.8 fl (7.5-11.1); MONO % 9.9 % (3.8-10.2); NEUT % 43.4 % (42.8-82.8); PLATELET COUNT 203 K/MM3 (134-434); RBC 3.05 M/mm3 (4.00-5.60); RDW 17.4 % (11.9-15.9); WHITE BLOOD COUNT 8.1 K/mm3 (4.0-10.0)
[2020-02-23 07:18] LABS: POTASSIUM 3.5 mmol/L (3.5-5.1)
[2020-02-23 07:23] LABS: ALBUMIN 1.6 g/dl (3.4-5.0); BLOOD UREA NITROGEN 13.9 mg/dL (7-18); MAGNESIUM 1.6 mg/dL (1.8-2.4)
[2020-02-23 07:26] LABS: PHOSPHOROUS 3.4 mg/dL (2.5-4.9)
[2020-02-23 07:27] LABS: BILIRUBIN,TOTAL 0.4 mg/dL (0.2-1)
[2020-02-23 07:28] LABS: TOT PROT 5.2 g/dl (6.4-8.2)
[2020-02-23] MEDS: ALBUTEROL SO4 0.083% IH SOL 2.5 MG/3 ML VIAL.NEB. NEB SCH ×2 (07:35→20:48)
[2020-02-23] MEDS: oxyCODONE HCL 5 MG TABLET PEG PRN (11:16)
[2020-02-23] MEDS: ASPIRIN 81 MG CHEWABLE TABLETS PEG SCH (11:17)
[2020-02-23] MEDS: AMINO ACIDS/PROTEIN HYDROLYS 30 ML LIQUID.PKT PEG SCH ×2 (11:17→18:17)
[2020-02-23] MEDS: AMIODARONE HCL 200 MG TABLET PEG SCH (11:17)
[2020-02-23] MEDS: VITAMIN B COMP W-C 1 EA TABLET (NEPHRO-VITE) PO SCH (11:17)
[2020-02-23] MEDS: FAMOTIDINE 40 MG/5 ML ORAL SUSPENSION PEG SCH ×2 (11:18→21:50)
[2020-02-23] MEDS: PANTOPRAZOLE SODIUM 40 MG VIAL IVPUSH SCH (11:18)
[2020-02-23] MEDS ORDERED: PT OWN MED DRAWER 7, Y5N ONE ×2 (11:20→14:38)
[2020-02-23] MEDS: CHOLESTYRAMINE/ASPARTAME 4 GM PACKET PEG SCH ×4 (11:23→21:50)
[2020-02-23] MEDS: CHLORHEXIDINE GLUCONATE 0.12% 15ML CUP MM SCH ×2 (11:23→21:51)
[2020-02-23] MEDS ORDERED: SODIUM CHLORIDE 250 ML IV PRN (13:20)
[2020-02-23] MEDS ORDERED: ceFAZolin SODIUM 1 GM VIAL ONE (14:37)
[2020-02-23] MEDS ORDERED: DEXTROSE 5%-WATER - 50 ML IVPB ONE (14:37)
[2020-02-23] MEDS: TOLNAFTATE 1% POWDER 45 GM POW TP SCH (14:41)
[2020-02-23] MEDS: CEFAZOLIN 1 GM in DEXTROSE 5%-WATER - 50 ML IVPB SCH (14:41)
[2020-02-23] MEDS: QUEtiapine FUMARATE 50 MG TABLET PEG SCH (21:51)
[2020-02-23] MEDS: MELATONIN 5 MG TABLETS PO PRN (21:51)
[2020-02-23] MEDS: APIXABAN 5 MG TABLET PEG SCH (21:57)
[2020-02-24] MEDS: GABAPENTIN 250 MG/5 ML ORAL SOLUTION, 470 ML BOTTLE PEG SCH ×3 (05:16→22:13)
[2020-02-24] MEDS: OCTREOTIDE ACETATE 100 MCG/1 ML SQ SCH ×3 (05:16→22:13)
[2020-02-24] MEDS: LOPERAMIDE HCL 2 MG CAPSULE PEG SCH ×3 (05:17→22:13)
[2020-02-24] MEDS: ALBUTEROL SO4 0.083% IH SOL 2.5 MG/3 ML VIAL.NEB. NEB SCH (08:30)
[2020-02-24] MEDS: AMINO ACIDS/PROTEIN HYDROLYS 30 ML LIQUID.PKT PEG SCH ×2 (09:02→18:46)
[2020-02-24 09:25] LABS: BASO % 0.7 % (0-2.0); EOS % 6.3 % (0-4.5); HEMATOCRIT 27.8 % (35.4-49); HEMOGLOBIN 8.8 GM/dL (11.7-16.9); LYMPH % 25.3 % (8-40); MCH 26.6 pg (25.7-33.7); MCHC 31.6 g/dl (32.0-35.9); MEAN CELL VOLUME 84.2 fl (80-96); MEAN PLT VOLUME 6.7 fl (7.5-11.1); MONO % 5.9 % (3.8-10.2); NEUT % 61.8 % (42.8-82.8); PLATELET COUNT 233 K/MM3 (134-434); RDW 18.3 % (11.9-15.9); WHITE BLOOD COUNT 10.4 K/mm3 (4.0-10.0)
[2020-02-24 09:27] LABS: POTASSIUM 3.6 mmol/L (3.5-5.1)
[2020-02-24 09:28] LABS: CALCIUM 8.4 mg/dL (8.5-10.1)
[2020-02-24 09:29] LABS: BLOOD UREA NITROGEN 18.6 mg/dL (7-18); MAGNESIUM 1.6 mg/dL (1.8-2.4)
[2020-02-24 09:32] LABS: CREATININE 5.1 mg/dL (0.55-1.3); PHOSPHOROUS 3.9 mg/dL (2.5-4.9)
[2020-02-24] MEDS ORDERED: EPOETIN ALFA 10,000 UNIT/1 ML VIAL IVPUSH ONE (10:00)
[2020-02-24] MEDS: EPOETIN ALFA 10,000 UNIT/1 ML VIAL IVPUSH ONE ×2 (10:27→22:15)
[2020-02-24] MEDS: APIXABAN 5 MG TABLET PEG SCH (10:40)
[2020-02-24] MEDS: ASPIRIN 81 MG CHEWABLE TABLETS PEG SCH (10:40)
[2020-02-24] MEDS: CHOLESTYRAMINE/ASPARTAME 4 GM PACKET PEG SCH ×4 (11:32→22:13)
[2020-02-24] MEDS: FAMOTIDINE 40 MG/5 ML ORAL SUSPENSION PEG SCH ×2 (11:32→22:13)
[2020-02-24] MEDS: CHLORHEXIDINE GLUCONATE 0.12% 15ML CUP MM SCH ×2 (11:34→22:12)
[2020-02-24] MEDS ORDERED: ceFAZolin SODIUM 1 GM VIAL ONE (12:19)
[2020-02-24] MEDS ORDERED: DEXTROSE 5%-WATER - 50 ML IVPB ONE (12:19)
[2020-02-24] MEDS: CEFAZOLIN 1 GM in DEXTROSE 5%-WATER - 50 ML IVPB SCH (12:24)
[2020-02-24] MEDS: PANTOPRAZOLE SODIUM 40 MG VIAL IVPUSH SCH (12:24)
[2020-02-24] MEDS: TOLNAFTATE 1% POWDER 45 GM POW TP SCH (12:25)
[2020-02-24] MEDS: VITAMIN B COMP W-C 1 EA TABLET (NEPHRO-VITE) PO SCH (12:26)
[2020-02-24] MEDS: AMIODARONE HCL 200 MG TABLET PEG SCH (12:26)
[2020-02-24] MEDS: ACETAMINOPHEN 1000 MG/100 ML VIAL (NON FORMULARY) IVPB PRN ×2 (12:35→22:09)
[2020-02-24] MEDS ORDERED: PT OWN MED DRAWER 7, Y5N ONE (14:12)
[2020-02-24] MEDS: oxyCODONE HCL 5 MG TABLET PO PRN ×2 (16:14→20:47)
[2020-02-24] MEDS: QUEtiapine FUMARATE 50 MG TABLET PEG SCH (22:13)
[2020-02-25] MEDS: oxyCODONE HCL 5 MG TABLET PO PRN ×3 (05:25→21:54)
[2020-02-25] MEDS: LOPERAMIDE HCL 2 MG CAPSULE PEG SCH ×3 (06:05→21:53)
[2020-02-25] MEDS: GABAPENTIN 250 MG/5 ML ORAL SOLUTION, 470 ML BOTTLE PEG SCH ×3 (06:06→21:52)
[2020-02-25] MEDS: OCTREOTIDE ACETATE 100 MCG/1 ML SQ SCH ×3 (06:07→21:51)
[2020-02-25] MEDS: ACETAMINOPHEN 1000 MG/100 ML VIAL (NON FORMULARY) IVPB PRN (06:31)
[2020-02-25] MEDS ORDERED: PT OWN MED DRAWER 7, Y5N ONE ×4 (08:45→17:40)
[2020-02-25] MEDS ORDERED: ALBUTEROL SO4 HFA INHALER IH PRN (09:30)
[2020-02-25] MEDS: AMINO ACIDS/PROTEIN HYDROLYS 30 ML LIQUID.PKT PEG SCH ×2 (09:35→17:23)
[2020-02-25] MEDS: FAMOTIDINE 40 MG/5 ML ORAL SUSPENSION PEG SCH ×2 (09:35→21:53)
[2020-02-25] MEDS: CHOLESTYRAMINE/ASPARTAME 4 GM PACKET PEG SCH ×4 (09:36→21:52)
[2020-02-25] MEDS: VITAMIN B COMP W-C 1 EA TABLET (NEPHRO-VITE) PO SCH (09:36)
[2020-02-25] MEDS: AMIODARONE HCL 200 MG TABLET PEG SCH (09:36)
[2020-02-25] MEDS: CHLORHEXIDINE GLUCONATE 0.12% 15ML CUP MM SCH ×2 (09:37→21:52)
[2020-02-25] MEDS: PANTOPRAZOLE SODIUM 40 MG VIAL IVPUSH SCH (10:28)
[2020-02-25] MEDS ORDERED: DEXTROSE 5%-WATER - 50 ML IVPB ONE (13:35)
[2020-02-25] MEDS ORDERED: ceFAZolin SODIUM 1 GM VIAL ONE (13:35)
[2020-02-25] MEDS: CEFAZOLIN 1 GM in DEXTROSE 5%-WATER - 50 ML IVPB SCH (13:41)
[2020-02-25] MEDS: TOLNAFTATE 1% POWDER 45 GM POW TP SCH (13:42)
[2020-02-25] MEDS ORDERED: MORPHINE SULFATE 2 MG/ML VIAL IVPUSH ONE ×2 (17:13→19:34)
[2020-02-25] MEDS ORDERED: ACETAMINOPHEN 1000 MG/100 ML VIAL (NON FORMULARY) IVPB ONE (19:34)
[2020-02-25] MEDS: MELATONIN 5 MG TABLETS PO PRN (21:52)
[2020-02-25] MEDS: QUEtiapine FUMARATE 50 MG TABLET PEG SCH (21:53)
[2020-02-26] MEDS: oxyCODONE HCL 5 MG TABLET PO PRN ×3 (05:15→23:06)
[2020-02-26] MEDS: LOPERAMIDE HCL 2 MG CAPSULE PEG SCH ×3 (05:15→22:28)
[2020-02-26] MEDS: OCTREOTIDE ACETATE 100 MCG/1 ML SQ SCH ×3 (05:17→22:45)
[2020-02-26] MEDS: GABAPENTIN 250 MG/5 ML ORAL SOLUTION, 470 ML BOTTLE PEG SCH ×3 (05:18→22:45)
[2020-02-26 06:44] LABS: HEMATOCRIT 31.3 % (35.4-49); HEMOGLOBIN 9.8 GM/dL (11.7-16.9); MCH 26.6 pg (25.7-33.7); MCHC 31.3 g/dl (32.0-35.9); MEAN CELL VOLUME 85.1 fl (80-96); PLATELET COUNT 219 K/MM3 (134-434); RBC 3.67 M/mm3 (4.00-5.60); RDW 18.7 % (11.9-15.9); WHITE BLOOD COUNT 9.2 K/mm3 (4.0-10.0)
[2020-02-26 06:56] LABS: POTASSIUM 3.6 mmol/L (3.5-5.1)
[2020-02-26 06:58] LABS: BLOOD UREA NITROGEN 17.7 mg/dL (7-18); CALCIUM 8.3 mg/dL (8.5-10.1)
[2020-02-26 06:59] LABS: MAGNESIUM 1.5 mg/dL (1.8-2.4)
[2020-02-26 07:02] LABS: CREATININE 4.8 mg/dL (0.55-1.3); PHOSPHOROUS 3.4 mg/dL (2.5-4.9)
[2020-02-26] MEDS: PANTOPRAZOLE SODIUM 40 MG VIAL IVPUSH SCH (09:24)
[2020-02-26] MEDS: CHOLESTYRAMINE/ASPARTAME 4 GM PACKET PEG SCH ×4 (09:24→22:28)
[2020-02-26] MEDS: CHLORHEXIDINE GLUCONATE 0.12% 15ML CUP MM SCH ×2 (09:24→22:31)
[2020-02-26] MEDS: AMIODARONE HCL 200 MG TABLET PEG SCH (09:24)
[2020-02-26] MEDS: FAMOTIDINE 40 MG/5 ML ORAL SUSPENSION PEG SCH ×2 (09:24→22:28)
[2020-02-26] MEDS: VITAMIN B COMP W-C 1 EA TABLET (NEPHRO-VITE) PO SCH (09:24)
[2020-02-26] MEDS: AMINO ACIDS/PROTEIN HYDROLYS 30 ML LIQUID.PKT PEG SCH ×2 (09:24→17:38)
[2020-02-26] MEDS: TOLNAFTATE 1% POWDER 45 GM POW TP SCH (09:25)
[2020-02-26] MEDS ORDERED: APIXABAN 5 MG TABLET PO SCH (10:30)
[2020-02-26] MEDS ORDERED: APIXABAN 2.5 MG TABLET PO SCH (11:15)
[2020-02-26] MEDS ORDERED: DEXTROSE 5%-WATER - 50 ML IVPB ONE (12:39)
[2020-02-26] MEDS ORDERED: ceFAZolin SODIUM 1 GM VIAL ONE (12:39)
[2020-02-26] MEDS: CEFAZOLIN 1 GM in DEXTROSE 5%-WATER - 50 ML IVPB SCH (12:42)
[2020-02-26] MEDS ORDERED: PT OWN MED DRAWER 7, Y5N ONE (22:17)
[2020-02-26] MEDS: QUEtiapine FUMARATE 50 MG TABLET PEG SCH (22:27)
[2020-02-27] MEDS: oxyCODONE HCL 5 MG TABLET PO PRN ×2 (05:52→18:08)
[2020-02-27] MEDS: LOPERAMIDE HCL 2 MG CAPSULE PEG SCH ×3 (05:52→21:49)
[2020-02-27] MEDS: OCTREOTIDE ACETATE 100 MCG/1 ML SQ SCH ×3 (05:53→21:50)
[2020-02-27] MEDS: GABAPENTIN 250 MG/5 ML ORAL SOLUTION, 470 ML BOTTLE PEG SCH ×3 (05:55→21:49)
[2020-02-27 06:30] LABS: HEMATOCRIT 30.7 % (35.4-49); HEMOGLOBIN 9.5 GM/dL (11.7-16.9); MCH 26.6 pg (25.7-33.7); MCHC 30.8 g/dl (32.0-35.9); MEAN CELL VOLUME 86.4 fl (80-96); PLATELET COUNT 214 K/MM3 (134-434); RBC 3.56 M/mm3 (4.00-5.60); RDW 18.8 % (11.9-15.9); WHITE BLOOD COUNT 7.8 K/mm3 (4.0-10.0)
[2020-02-27 06:40] LABS: INR 1.29 (0.83-1.09); PROTHROMBIN TIME (PATIENT) 15.5 SEC (9.7-13.0)
[2020-02-27 06:43] LABS: ACTIVATED PTT 31.5 SECONDS (25.2-36.5)
[2020-02-27 07:09] LABS: CALCIUM 8.1 mg/dL (8.5-10.1)
[2020-02-27 07:10] LABS: MAGNESIUM 1.7 mg/dL (1.8-2.4)
[2020-02-27 07:13] LABS: PHOSPHOROUS 4.2 mg/dL (2.5-4.9)
[2020-02-27 07:14] LABS: CREATININE 5.3 mg/dL (0.55-1.3)
[2020-02-27] MEDS: VITAMIN B COMP W-C 1 EA TABLET (NEPHRO-VITE) PO SCH (09:25)
[2020-02-27] MEDS: AMINO ACIDS/PROTEIN HYDROLYS 30 ML LIQUID.PKT PEG SCH ×2 (09:25→18:08)
[2020-02-27] MEDS: FAMOTIDINE 40 MG/5 ML ORAL SUSPENSION PEG SCH ×2 (09:25→21:49)
[2020-02-27] MEDS: AMIODARONE HCL 200 MG TABLET PEG SCH (09:25)
[2020-02-27] MEDS: PANTOPRAZOLE SODIUM 40 MG VIAL IVPUSH SCH (09:26)
[2020-02-27] MEDS: CHOLESTYRAMINE/ASPARTAME 4 GM PACKET PEG SCH ×4 (09:26→21:49)
[2020-02-27] MEDS: CHLORHEXIDINE GLUCONATE 0.12% 15ML CUP MM SCH ×2 (09:26→21:49)
[2020-02-27] MEDS: TOLNAFTATE 1% POWDER 45 GM POW TP SCH (09:29)
[2020-02-27] MEDS ORDERED: DEXTROSE 5%-WATER - 50 ML IVPB ONE (11:42)
[2020-02-27] MEDS ORDERED: ceFAZolin SODIUM 1 GM VIAL ONE (11:42)
[2020-02-27] MEDS ORDERED: MIDAZOLAM HCL 2 MG/2 ML SINGLE DOSE VIAL ONE (12:57)
[2020-02-27] MEDS ORDERED: LIDOCAINE HCL 1%, 10 MG/ML (20ML VIAL) ONE ×2 (12:58→13:46)
[2020-02-27] MEDS ORDERED: ceFAZolin SODIUM 1 GM VIAL IVPB ONE (13:40)
[2020-02-27] MEDS ORDERED: LIDOCAINE HCL 1%, 10 MG/ML (20ML VIAL) NR ONE ×2 (13:46)
[2020-02-27] MEDS: CEFAZOLIN 1 GM in DEXTROSE 5%-WATER - 50 ML IVPB SCH (15:34)
[2020-02-27] MEDS ORDERED: morphine CARPU-JECT 2 MG/1 ML DISP.SYRIN IVPUSH PRN (17:58)
[2020-02-27] MEDS ORDERED: PT OWN MED DRAWER 7, Y5N ONE (18:05)
[2020-02-27] MEDS: MORPHINE SULFATE 2 MG/ML VIAL IVPUSH PRN (20:47)
[2020-02-27] MEDS: MELATONIN 5 MG TABLETS PO PRN (21:49)
[2020-02-27] MEDS: QUEtiapine FUMARATE 50 MG TABLET PEG SCH (21:49)
[2020-02-28] MEDS: oxyCODONE HCL 5 MG TABLET PO PRN ×4 (00:06→18:26)
[2020-02-28] MEDS: LOPERAMIDE HCL 2 MG CAPSULE PEG SCH ×3 (06:53→21:34)
[2020-02-28] MEDS: GABAPENTIN 250 MG/5 ML ORAL SOLUTION, 470 ML BOTTLE PEG SCH ×3 (06:54→21:35)
[2020-02-28] MEDS: OCTREOTIDE ACETATE 100 MCG/1 ML SQ SCH ×3 (06:54→21:35)
[2020-02-28] MEDS ORDERED: EPOETIN ALFA-EPBX 3,000 UNIT/ML VIAL SQ ONE (07:00)
[2020-02-28] MEDS ORDERED: SODIUM CHLORIDE 250 ML IV PRN (07:00)
[2020-02-28 09:42] LABS: HEMATOCRIT 27.9 % (35.4-49); MCH 27.3 pg (25.7-33.7); MCHC 32.2 g/dl (32.0-35.9); MEAN CELL VOLUME 84.9 fl (80-96); MEAN PLT VOLUME 7.1 fl (7.5-11.1); PLATELET COUNT 242 K/MM3 (134-434); RBC 3.29 M/mm3 (4.00-5.60); RDW 18.8 % (11.9-15.9); WHITE BLOOD COUNT 14.6 K/mm3 (4.0-10.0)
[2020-02-28 10:05] LABS: CALCIUM 8.1 mg/dL (8.5-10.1)
[2020-02-28 10:06] LABS: BLOOD UREA NITROGEN 32.4 mg/dL (7-18); MAGNESIUM 1.4 mg/dL (1.8-2.4)
[2020-02-28 10:09] LABS: CREATININE 5.7 mg/dL (0.55-1.3); PHOSPHOROUS 4.9 mg/dL (2.5-4.9)
[2020-02-28] MEDS ORDERED: ceFAZolin SODIUM 1 GM VIAL ONE (12:28)
[2020-02-28] MEDS ORDERED: PT OWN MED DRAWER 7, Y5N ONE ×2 (12:28→21:28)
[2020-02-28] MEDS ORDERED: DEXTROSE 5%-WATER - 50 ML IVPB ONE (12:29)
[2020-02-28] MEDS: AMINO ACIDS/PROTEIN HYDROLYS 30 ML LIQUID.PKT PEG SCH ×2 (12:33→18:26)
[2020-02-28] MEDS: PANTOPRAZOLE SODIUM 40 MG VIAL IVPUSH SCH (12:33)
[2020-02-28] MEDS: CEFAZOLIN 1 GM in DEXTROSE 5%-WATER - 50 ML IVPB SCH (12:33)
[2020-02-28] MEDS: VITAMIN B COMP W-C 1 EA TABLET (NEPHRO-VITE) PO SCH (12:33)
[2020-02-28] MEDS: AMIODARONE HCL 200 MG TABLET PEG SCH (12:33)
[2020-02-28] MEDS: FAMOTIDINE 40 MG/5 ML ORAL SUSPENSION PEG SCH ×2 (12:33→21:35)
[2020-02-28] MEDS: TOLNAFTATE 1% POWDER 45 GM POW TP SCH (12:35)
[2020-02-28] MEDS: CHOLESTYRAMINE/ASPARTAME 4 GM PACKET PEG SCH ×4 (12:35→22:39)
[2020-02-28] MEDS: CHLORHEXIDINE GLUCONATE 0.12% 15ML CUP MM SCH ×2 (12:35→22:39)
[2020-02-28] MEDS: QUEtiapine FUMARATE 50 MG TABLET PEG SCH (21:34)
[2020-02-28] MEDS: APIXABAN 5 MG TABLET PO SCH (21:34)
[2020-02-29] MEDS: oxyCODONE HCL 5 MG TABLET PO PRN (01:08)
[2020-02-29] MEDS: MORPHINE SULFATE 2 MG/ML VIAL IVPUSH PRN ×2 (03:52→10:37)
[2020-02-29] MEDS ORDERED: PT OWN MED DRAWER 7, Y5N ONE ×5 (05:30→17:53)
[2020-02-29] MEDS: OCTREOTIDE ACETATE 100 MCG/1 ML SQ SCH ×2 (05:35→15:19)
[2020-02-29] MEDS: LOPERAMIDE HCL 2 MG CAPSULE PEG SCH ×2 (05:40→15:15)
[2020-02-29] MEDS: GABAPENTIN 250 MG/5 ML ORAL SOLUTION, 470 ML BOTTLE PEG SCH ×2 (05:40→15:18)
[2020-02-29 06:31] LABS: HEMATOCRIT 27.8 % (35.4-49); HEMOGLOBIN 8.8 GM/dL (11.7-16.9); MCH 27.1 pg (25.7-33.7); MCHC 31.7 g/dl (32.0-35.9); MEAN CELL VOLUME 85.5 fl (80-96); MEAN PLT VOLUME 7.1 fl (7.5-11.1); PLATELET COUNT 187 K/MM3 (134-434); RBC 3.25 M/mm3 (4.00-5.60); RDW 19.4 % (11.9-15.9); WHITE BLOOD COUNT 8.5 K/mm3 (4.0-10.0)
[2020-02-29 06:40] LABS: POTASSIUM 3.6 mmol/L (3.5-5.1)
[2020-02-29 06:42] LABS: CALCIUM 7.5 mg/dL (8.5-10.1)
[2020-02-29 06:43] LABS: BLOOD UREA NITROGEN 17.8 mg/dL (7-18); MAGNESIUM 1.5 mg/dL (1.8-2.4)
[2020-02-29 06:46] LABS: CREATININE 3.8 mg/dL (0.55-1.3); PHOSPHOROUS 2.8 mg/dL (2.5-4.9)
[2020-02-29] MEDS: AMINO ACIDS/PROTEIN HYDROLYS 30 ML LIQUID.PKT PEG SCH (09:33)
[2020-02-29] MEDS: VITAMIN B COMP W-C 1 EA TABLET (NEPHRO-VITE) PO SCH (09:36)
[2020-02-29] MEDS: AMIODARONE HCL 200 MG TABLET PEG SCH (09:36)
[2020-02-29] MEDS: APIXABAN 5 MG TABLET PO SCH (09:36)
[2020-02-29] MEDS: CHOLESTYRAMINE/ASPARTAME 4 GM PACKET PEG SCH ×3 (09:37→18:08)
[2020-02-29] MEDS: CHLORHEXIDINE GLUCONATE 0.12% 15ML CUP MM SCH (09:37)
[2020-02-29] MEDS: PANTOPRAZOLE SODIUM 40 MG VIAL IVPUSH SCH (10:38)
[2020-02-29] MEDS ORDERED: AMINO ACIDS/PROTEIN HYDROLYS 30 ML LIQUID.PKT PO SCH (13:29)
[2020-02-29] MEDS ORDERED: BANATROL PLUS POWDER PACKET PO SCH (14:00)
[2020-02-29] MEDS ORDERED: ceFAZolin SODIUM 1 GM VIAL ONE (14:58)
[2020-02-29] MEDS ORDERED: DEXTROSE 5%-WATER - 50 ML IVPB ONE (14:58)
[2020-02-29] MEDS: FAMOTIDINE 40 MG/5 ML ORAL SUSPENSION PEG SCH (15:14)
[2020-02-29] MEDS: CEFAZOLIN 1 GM in DEXTROSE 5%-WATER - 50 ML IVPB SCH (15:15)
[2020-02-29] MEDS: TOLNAFTATE 1% POWDER 45 GM POW TP SCH (15:22)
[2020-02-29 19:01] VITALS: BP 117/76; PULSE 96; TEMP 98.8
== END 2020-02-29 19:00 | DRG 710 ==
LOC: JER 17:11 → JERBED 23:43 → JICU 02-14 02:30 → J7W 02-18 15:21
PROVIDERS: ADMIT Internal Medicine Pulmonary Disease
PROC: 02HV33Z Insertion of Infusion Device into Superior Vena Cava, Percutaneous Approach (ICD-10-PCS; 2020-02-14)
PROC: 0Y6J0Z1 Detachment at Left Lower Leg, High, Open Approach (ICD-10-PCS; principal; 2020-02-19 15:00)
PROC: 30233N1 Transfusion of Nonautologous Red Blood Cells into Peripheral Vein, Percutaneous Approach (ICD-10-PCS; 2020-02-21)
PROC: 0Y6M0Z9 Detachment at Right Foot, Partial 1st Ray, Open Approach (ICD-10-PCS; 2020-02-27)
PROC: 0Y6M0ZB Detachment at Right Foot, Partial 2nd Ray, Open Approach (ICD-10-PCS; 2020-02-27)
PROC: 0Y6M0ZD Detachment at Right Foot, Partial 4th Ray, Open Approach (ICD-10-PCS; 2020-02-27)
PROC: 0Y6M0ZF Detachment at Right Foot, Partial 5th Ray, Open Approach (ICD-10-PCS; 2020-02-27)
PROC: 5A1D70Z Performance of Urinary Filtration, Intermittent, Less than 6 Hours Per Day (ICD-10-PCS; 2020-02-28)
DX: A41.9 Sepsis, unspecified organism (principal); I73.9 Peripheral vascular disease, unspecified; Z93.2 Ileostomy status; K58.9 Irritable bowel syndrome, unspecified; J98.11 Atelectasis; F20.9 Schizophrenia, unspecified; Z93.0 Tracheostomy status; N18.6 End stage renal disease; I48.91 Unspecified atrial fibrillation; I96 Gangrene, not elsewhere classified; I95.9 Hypotension, unspecified; I13.11 Hypertensive heart and chronic kidney disease without heart failure, with stage 5 chronic kidney disease, or end stage renal disease; R65.21 Severe sepsis with septic shock; D62 Acute posthemorrhagic anemia; R64 Cachexia; Z68.1 Body mass index [BMI] 19.9 or less, adult; E86.9 Volume depletion, unspecified; M86.171 Other acute osteomyelitis, right ankle and foot
CPT/HCPCS: 36415; 36430; 71045-TC-FY; 71250-TC; 73630-TC-LT; 73630-TC-RT-FY; 74018-TC-FY; 74176-TC; 74230-TC-FY; 76705-TC; 80048; 80053; 80074; 81003; 82272; 82728; 82962; 83010; 83036; 83540; 83550; 83605; 83615; 83735; 83880; 84100; 84484; 85025; 85027; 85610; 85651; 85730; 86850; 86900; 86901; 86922; 87040; 87070; 87086; 87186; 87205; 87389; 88305-TC; 88307-TC; 88311-TC; 90670; 92611-GN; 93005; 93010; 93306-TC; 94640; 94760; 97162-GP; 99291; 99292; C9803; G0480; J0131; J0885; J1644; P9058; Q5106; U0003